=== PATIENT | female | born 1995 | race Caucasian/White ===

== ENCOUNTER 2018-07-26 16:39 | Inpatient (IN) | payer OTHER ==
[~2018-07-26] VITALS: Ht 172.7 cm; Wt 92.1 kg
[2018-07-26] MEDS ORDERED: ZOFRAN4 MG PO (17:39)
[2018-07-26] MEDS ORDERED: OBSTETRIX EC C1 EACH PO (17:40)
[2018-07-26] MEDS ORDERED: ZYRTEC10 M3 PO (17:40)
== END 2018-08-29 12:00 | disposition home or self-care (01) | DRG 831 ==
LOC: OB/GYN 16:39 → LDR 16:39 → OB/GYN 07-27 16:43
PROC: 4A1HXCZ Monitoring of Products of Conception, Cardiac Rate, External Approach (ICD-10-PCS; principal; 2018-07-26)
PROC: BY4FZZZ Ultrasonography of Third Trimester, Single Fetus (ICD-10-PCS; 2018-07-26)
PROC: BU4CZZZ Ultrasonography of Uterus and Ovaries (ICD-10-PCS; 2018-07-26)
PROC: 3E0F7GC Introduction of Other Therapeutic Substance into Respiratory Tract, Via Natural or Artificial Opening (ICD-10-PCS; 2018-08-02)
PROC: 4A033R1 Measurement of Arterial Saturation, Peripheral, Percutaneous Approach (ICD-10-PCS; 2018-08-02)
PROC: BY4FZZZ Ultrasonography of Third Trimester, Single Fetus (ICD-10-PCS; 2018-08-10)
DX: O20.0 Threatened abortion (principal); O60.03 Preterm labor without delivery, third trimester; Z34.03 Encounter for supervision of normal first pregnancy, third trimester; O26.893 Other specified pregnancy related conditions, third trimester; R06.02 Shortness of breath

== ENCOUNTER 2018-09-21 05:48 | Outpatient (CLI) | payer OTHER ==
[~2018-09-21 05:48] MED LIST: OBSTETRIX EC C1 EACH PO; ZOFRAN4 MG PO; ZYRTEC10 M3 PO
== END 2018-09-21 18:22 | disposition home or self-care (01) ==
LOC: OBS/DEL 05:48
DX: O47.1 False labor at or after 37 completed weeks of gestation (principal); Z34.03 Encounter for supervision of normal first pregnancy, third trimester

== ENCOUNTER 2018-09-26 17:24 | Inpatient (IN) | payer OTHER ==
[~2018-09-26] VITALS: Ht 172.7 cm; Wt 95.7 kg
== END 2018-09-29 11:56 | disposition home or self-care (01) | DRG 807 ==
LOC: OBS/DEL 17:24 → OB/GYN 09-27 08:08 → LDR 09-27 08:08 → OB/GYN 09-27 14:04
PROVIDERS: ADMIT Obstetrics & Gynecology
PROC: 10E0XZZ Delivery of Products of Conception, External Approach (ICD-10-PCS; principal; 2018-09-27)
PROC: 10907ZC Drainage of Amniotic Fluid, Therapeutic from Products of Conception, Via Natural or Artificial Opening (ICD-10-PCS; 2018-09-27)
PROC: 0W8NXZZ Division of Female Perineum, External Approach (ICD-10-PCS; 2018-09-27)
PROC: 4A1HXCZ Monitoring of Products of Conception, Cardiac Rate, External Approach (ICD-10-PCS; 2018-09-27)
DX: O80 Encounter for full-term uncomplicated delivery (principal); Z37.0 Single live birth; Z3A.38 38 weeks gestation of pregnancy; Z22.330 Carrier of Group B streptococcus